=== PATIENT | male | born 1980 | race Hispanic/Latino ===

== ENCOUNTER 2021-11-02 04:11 | Emergency (ER) | payer BC ==
[~2021-11-02] VITALS: Ht 165.1 cm; Wt 108.9 kg
== END 2021-11-02 05:52 | disposition home or self-care (01) ==
LOC: ER 04:21
DX: B34.9 Viral infection, unspecified (principal); I10 Essential (primary) hypertension; E78.00 Pure hypercholesterolemia, unspecified; F17.210 Nicotine dependence, cigarettes, uncomplicated; Z20.822 Contact with and (suspected) exposure to COVID-19
CPT/HCPCS: 99283; U0002